=== PATIENT | female | born 1960 | race Caucasian/White ===

== ENCOUNTER 2023-06-20 15:29 | Emergency (ER) | payer OTHER, SELFPAY ==
[2023-06-20 15:52] VITALS: BP 128/68; PULSE 66; RESP 18; TEMP 36.4; O2SAT 100; BMI 21.3
--- NOTE | 2023-06-20 19:53 | ED.GENADULT ---
HPI - General Adult General Chief complaint: Laceration/Wound Stated complaint: R pinky-lac from grill Time Seen by Provider: 06/20/23 19:20 History of Present Illness HPI narrative: putting new grill together, lac to R 5th digit, was at urgent care and sent here. 62-year-old woman presenting to the emergency department accompanied by after initially being evaluated in the urgent care for a laceration to the right 5th distal finger. Apparently putting new grill together and lid came down on her finger in a crush injury. She has been noted to has sustained a laceration and some involvement of the nail/nail bed apparently driving concern for emergency room care. Certainly having pain. Reviewing vaccination, and not up-to-date on tetanus Related Data Home Medications Medication Instructions Recorded Confirmed alendronate 70 mg tablet mg PO 06/20/23 Allergies Allergy/AdvReac Type Severity Reaction Status Date / Time No Known Drug Allergies Allergy Verified 06/20/23 15:56 Review of Systems Status of ROS: Reports: 6 or more systems reviewed and unremarkable except as noted in History and below PFSH PFS Social History Non-prescribed substance use: denies use Exam Narrative: Exam Narrative: Pleasant. Little uncomfortable favoring the right hand. Breathing easily. Examination of the right hand after removal of gauze from right 5th finger shows a laceration that does extend diagonally under the nail to the ulnar corner distally and then in total more proximally along the finger about an inch. Bleeds easily when manipulated. Some degree of avulsion of the nail. Const: Vital Signs, click to edit/add: Vital Signs - 24 hr 06/20/23 15:52 Temperature 97.6 F Pulse Rate [Pulse Oximeter] 66 Respiratory Rate 18 Blood Pressure [Ri ght Upper Arm] 128/68 Pulse Oximetry 100 Oxygen Delivery Me thod Room Air Documenting provider has reviewed patient's vital signs: yes Course Vital Signs Vital signs: Initial Vital Signs Temperature 97.6 F 06/20/23 15:52 Temperature Source Temporal Artery Scan 06/20/23 15:52 Pulse Rate 66 06/20/23 15:52 Respiratory Rate 18 06/20/23 15:52 Blood Pressure 128/68 06/20/23 15:52 Blood Pressure Mean 88 06/20/23 15:52 Blood Pressure Position Sitting 06/20/23 15:52 Pulse Oximetry 100 06/20/23 15:52 Oxygen Delivery Method Room Air 06/20/23 15:52 Vital Signs Temperature 97.6 F 06/20/23 15:52 Pulse Rate 66 06/20/23 15:52 Respiratory Rate 18 06/20/23 15:52 Blood Pressure 128/68 06/20/23 15:52 Pulse Oximetry 100 06/20/23 15:52 Oxygen Delivery Method Room Air 06/20/23 15:52 Temperature 97.6 F 06/20/23 15:52 Pulse Rate 66 06/20/23 15:52 Respiratory Rate 18 06/20/23 15:52 Blood Pressure 128/68 06/20/23 15:52 Pulse Oximetry 100 06/20/23 15:52 Oxygen Delivery Method Room Air 06/20/23 15:52 Medical Decision Making MDM Narrative Medical decision making narrative: Placed Marcaine in a digital block. This will need repair. Like to verify whether not this is potentially an open fracture with an x-ray. Soaked in Hibiclens and water solution. X-ray by my read does show a distal tuft fracture of the finger. Radiology over-read below FINDINGS: There is an acute mildly displaced tuft fracture of the 5th distal phalanx with mild associated soft tissue swelling. No radiopaque foreign bodies. The joint spaces are preserved. IMPRESSION: Acute mildly displaced 5th distal phalangeal tuft fracture. I did returned then to further clean the finger and then sutured with 5-0 Ethilon interrupted sutures. Also used nail to secure nailbed laceration. Tolerated well. Place antibiotic ointment and light compression dressing. Shahid taping. Given splints. See patient discharge plan Discharge Plan Discharge Clinical Impression: Crush injury to finger, Open fracture of tuft of distal phalanx of finger, Finger laceration Patient Disposition: Home w/ Parent or Adult Condition: Improved Additional Instructions: sutures out in 8 - 9 days. antibiotic ointment for 5 days and then to a dry dressing. ok to get wet but try not to soak while sutures are in. watch for spreading redness after 2 days accompanied by heat, swelling, marked increase in pain, purulent drainage. And keep protected with splints as given over the next 3 - 4 weeks or as needed for protection from bumping/pain. When using the splint in particular, would recommend shaihd taping to your 4th finger. Can remove splint and dressing to ice your finger if you would like. Elevate for comfort as well. If the plastic splint is a little tight might try bending it open, that does not work we can get you another one. Can take up to 800 mg of ibuprofen or up to 1000 mg of acetaminophen per dose. Instead of the ibuprofen could take up to 500 mg naproxen 2 times daily. Cephalexin from [facility] Prescriptions: No Action alendronate 70 mg tablet PO Follow Up/Referrals: Provider,Not a Local [Primary Care Provider] - Stand Alone Forms: [employer] Info Instructions
--- NOTE | 2023-06-20 19:54 | XR_ITS ---
Patient: VIDYA BURGOS Facility:?[facility] Patient ID:?[id number] Site Patient ID:?[id number]. Site :?[id number] Study:?XRay-Extremity Right 5TH DIGIT-06/20/2023 8:11:04 PM Ordering Physician:Gume Pérez Final Report: INDICATION: Trauma. TECHNIQUE: Right 5th finger radiographs, 3 views. COMPARISON: None. FINDINGS: There is an acute mildly displaced tuft fracture of the 5th distal phalanx with mild associated soft tissue swelling. No radiopaque foreign bodies. The joint spaces are preserved. IMPRESSION: Acute mildly displaced 5th distal phalangeal tuft fracture. Dictated by Kiran Guerrero MD @ 06/20/2023 8:58:10 PM Signed by:?Kiran Guerrero MD @06/20/2023 8:58:10 PM (Electronic Signature)
[2023-06-20] MEDS: BUPIVACAINE 0.25% 30 ML INJECTION (20:03)
--- OUTSIDE RECORDS SUMMARY | 2023-06-20 20:16 | XMS_ITS | Continuity of Care Document ---
Author Name Unknown Organization [facility] Address [address] [address] [place] [address] Phone Care Team Providers Care Back Hanger Name Role Phone Chavez Hurtado MD Unavailable Unavailable Allergies, Adverse Reactions, Alerts Substance Reaction Status Criticality No Known allergies Medications Medication Instructions Dosage Effective Dates (start - stop) Status Comments No Drug Therapy Prescribed Procedures Procedure Date Colonoscopy Flex; Dx (sep Pro) 11 Advance Directives Directive Yes / No Effective Date File Name Resuscitation Not Answered N/A N/A Life Support Not Answered N/A N/A Intubation Not Answered N/A N/A Antibiotics Not Answered N/A N/A IV Fluid Support Not Answered N/A N/A Tube Feed Not Answered N/A N/A Other Directive N/A N/A WARNING:The information contained in this section is historical and is provided for information only and does not constitute a legal document or any assurance that the information is still accurate. Please verify the information with the reynolds of the legal document before using it for clinical purposes. Encounters Encounter Description Practice Location Reason(s) For Visit Diagnoses Date Provider Providers Copied on Encounter [facility], [address] [address], [place], [place], [id number], [place] tel:[phone] [facility] Colon Cancer Screening Genesis Byrne. [address] [facility] [facility] [address], [place], [place], [id number], [place]. tel:[phone] Referring Provider: Madison Ling, [address] [place], [address]. tel:[phone] Family History Family Member Type Diagnosis Age At Onset No Information Payers Payer name Insurance type Covered constitution party ID Authornelsona tibean(s) No Information Social History Type Description Quantity Date Captured Comments Alcohol Use Details Unknown Caffeine Use Details Unknown Tobacco Use Status No Information Smoking Status No Information Sex Female Chief Complaint And Reason For Visit No Information Reason For Referral Reason For Referral No Information History Of Present Illness Encounter Date Complaint History Of Prese nt Illness No Information Functional Status Date Functional Assessmen t No Information Medications Administered Medication Instructions Dosage Effective Dates (start - stop) Status Comments No Drug Therapy Prescribed Instructions Date Instruction Additional Infor mation No Information Assessments Type Assessment Date No Information Patient Care Teams Name Effective Dates (start - stop) Status Members No Information
[2023-06-20] MEDS: TETANUS/DIPHTH/PERTUSSIS 0.5 ML SYRINGE IM (21:41)
== END 2023-06-20 22:12 | disposition home or self-care (01) ==
PROVIDERS: Emergency Provider Family Medicine
DX: S62.636B Displaced fracture of distal phalanx of right little finger, initial encounter for open fracture (principal); X58.XXXA Exposure to other specified factors, initial encounter
CPT/HCPCS: 12001; 73140; 90471; 90715; 99283; 99284; J0665